=== PATIENT | female | born 2000 | race Caucasian/White ===

== ENCOUNTER 2021-10-24 12:36 | Emergency (ER) | payer OTHER, SELFPAY ==
[2021-10-24 12:38] VITALS: BP 114/41; PULSE 84; RESP 19; TEMP 36.6; O2SAT 98; BMI 20.3
== END 2021-10-24 15:36 | disposition left against medical advice (07) ==
PROVIDERS: Emergency Provider Emergency Medicine
DX: R09.89 Other specified symptoms and signs involving the circulatory and respiratory systems (principal)
CPT/HCPCS: 99281; 99282